=== PATIENT | female | born 1980 | race Caucasian/White ===

== ENCOUNTER → 2021-05-23 | Outpatient (CLI) | payer BC, OTHER ==
[~2021-05-23] MED LIST: FLONASE 0.05% N16 GM; LEVAQUIN750 MG PO; PYRIDIUM200 MG PO; SUDAFED 60 MG T60 MG PO; ZITHROMAX250 MG PO; ZOFRAN4 MG PO; ZYRTEC10 MG PO
[2021-05-23 12:08] LABS: HEMOGLOBIN 13.6 gm/dl (12.3-15.3); RED BLOOD COUNT 4.57 M/UL (4.00-5.10); WHITE BLOOD COUNT 4.4 K/UL (4.5-11.0)
[2021-05-24 08:14] LABS: THYROXINE (T4) 7.4 ug/dL (4.5-12.0)
== END ==
LOC: LAB 10:41
PROVIDERS: Nurse Practitioner
DX: E78.5 Hyperlipidemia, unspecified (principal); I10 Essential (primary) hypertension; R53.83 Other fatigue; J06.9 Acute upper respiratory infection, unspecified
CPT/HCPCS: 36415; 80053; 80061; 81001; 84436; 84443; 84480; 85025; 87086

== ENCOUNTER → 2021-06-27 | Outpatient (CLI) | payer BC, OTHER | LOC: RAD 10:56 | DX: U07.1 COVID-19 (principal); I77.819 Aortic ectasia, unspecified site | CPT/HCPCS: 71046 ==

== ENCOUNTER → 2022-02-22 | Outpatient (CLI) | payer BC | LOC: MAMO 14:38 | DX: Z12.31 Encounter for screening mammogram for malignant neoplasm of breast (principal) | CPT/HCPCS: 77063; 77067 ==

== ENCOUNTER → 2022-04-04 | Outpatient (CLI) | payer BC | LOC: MAMO 03-15 13:30 → US 03-15 14:00 → MAMO 04-03 10:30 → US 04-03 15:00 → MAMO 13:58 | DX: Z53.9 Procedure and treatment not carried out, unspecified reason (principal) | CPT/HCPCS: 76641; 77066; G0279 ==

== ENCOUNTER → 2022-04-19 | Outpatient (CLI) | payer BC | LOC: US 04-16 10:00 | DX: N60.12 Diffuse cystic mastopathy of left breast (principal) | CPT/HCPCS: 77065 ==